=== PATIENT | female | born 1955 | race Caucasian/White ===

== ENCOUNTER 2018-03-31 00:12 | Inpatient (IN) | payer OTHER ==
[2018-03-31] MEDS: SOD CHLORIDE 0.9% 1,000 ML IV ×2 (00:22→05:51)
[2018-03-31 00:23] LABS: ADD MAN DIFF? NO
[2018-03-31 00:44] LABS: ABNORMAL IP MESSAGE 1; BASOPHIL # 0.1 10^3/ul (0.0-0.1); BASOPHILS % 1.1 % (0.0-2.0); EOSINOPHILS # 0.2 10^3/ul (0.0-0.5); EOSINOPHILS % 1.8 % (0.0-7.0); HEMATOCRIT 48.4 % (37.0-47.0); LYMPHOCYTES # 6.2 10^3/ul (0.8-2.9); LYMPHOCYTES % 51.8 % (15.0-51.0); MEAN CORPUSCULAR HEMOGLOBIN 30.5 pg (29.0-33.0); MEAN CORPUSCULAR VOLUME 98.6 fl (82.0-101.0); MONOCYTE # 0.4 10^3/ul (0.3-0.9); MONOCYTES % 3.4 % (0.0-11.0); NEUTROPHIL # 4.9 10^3/ul (1.6-7.5); NEUTROPHILS % 40.8 % (39.0-77.0); PLATELET COUNT 324 10^3/UL (140-415); RED BLOOD COUNT 4.91 10^6/ul (4.20-5.40)
[2018-03-31 00:44] LABS: WHITE BLOOD COUNT 11.9 10^3/ul (4.8-10.8)
[2018-03-31] MEDS: LORAZEPAM 2 MG INJ IV (00:47)
[2018-03-31 00:52] LABS: POSITIVE DIFF @See below
[2018-03-31 01:00] LABS: ALANINE AMINOTRANSFERASE 94 IU/L (13-69); ALBUMIN 4.1 g/dl (3.3-4.9); ALBUMIN/GLOBULIN RATIO 1.28; ALKALINE PHOSPHATASE 72 IU/L (42-121); ANION GAP 23 (8-16); ASPARTATE AMINO TRANSFERASE 81 IU/L (15-46); BILIRUBIN,INDIRECT 0.2 mg/dl (0-1.1); BILIRUBIN,TOTAL 0.2 mg/dl (0.2-1.3); BLOOD UREA NITROGEN 15 mg/dl (7-20); CALCIUM 9.2 mg/dl (8.4-10.2); CARBON DIOXIDE 14 mmol/L (21-31); CHLORIDE 112 mmol/L (97-110); CREATININE 0.97 mg/dl (0.44-1.00); GLUCOSE 224 mg/dl (70-220); POTASSIUM 4.3 mmol/L (3.5-5.1); SODIUM 145 mmol/L (135-144); TOTAL PROTEIN 7.3 g/dl (6.1-8.1)
[2018-03-31 01:03] LABS: INR 0.99; PROTIME 13.2 Sec (11.9-14.9)
[2018-03-31 01:04] LABS: PARTIAL THROMBOPLASTIN TIME 23.2 Sec (25.0-35.0)
[2018-03-31 01:17] LABS: TROPONIN-I 0.621 ng/ml (0.000-0.120)
[2018-03-31] MEDS: SOD CHLORIDE 0.9% 100 ML (01:33)
[2018-03-31] MEDS: IOHEXOL 100 ML (01:33)
[2018-03-31] MEDS: CEFEPIME 1GM/50 ML (PMX) 50 ML IVPB (01:44)
[2018-03-31 02:03] LABS: AADO2 Arterial 556.5 mmHg (7.0-24.0); Allen Test ACCEPTAB; Arterial Base Excess -12.6 mmol/L (-3.0-3); Arterial Blood Gas Oxygen Sat 85.3 mmHG (95.0-98.0); Arterial COHb 0.7 % (0.0-3.0); Arterial Fraction of Oxyhgb 84.5 % (93.0-99.0); Arterial HCO3 20.5 mmol/L (22.0-26.0); Arterial MetHb 0.2 % (0.0-1.5); Arterial Total Hemglobin 14.9 g/dl (12.0-18.0); Arterial pCO2 85.4 mmhg (35-45); Blood Gas IEPAP 15/5; MODE MASK - BIPAP; Site Right Radial
[2018-03-31] MEDS: ASPIRIN 81 MG TAB PO (02:26)
[2018-03-31 02:30] LABS: LACTIC ACID 4.3 mmol/L (0.5-2.0)
[2018-03-31] MEDS: FENTAnyl (DRIP) 1000 mcg/100mL 100 ML IV ×2 (02:41→13:21)
[2018-03-31] MEDS: VANCOMYCIN 1 GM (PMX) 250 ML IVPB (02:43)
[2018-03-31] MEDS ORDERED: ACETAMINOPHEN 325 MG TAB PO (03:00)
[2018-03-31] MEDS ORDERED: ONDANSETRON 4 MG INJ IV (03:00)
[2018-03-31] MEDS: FENTAnyl 50 MCG/ML VIAL IV (03:10)
[2018-03-31] MEDS: MIDAZOLAM 1 MG/ML 2 ML INJ IV (03:15)
[2018-03-31] MEDS: SODIUM CHLORIDE 0.9% 1L BAG IV* (03:28)
[2018-03-31 03:41] LABS: ADD UMIC YES; UR ASCORBIC ACID NEGATIVE (NEGATIVE); UR BACTERIA FEW /HPF (NONE SEEN); UR BILIRUBIN (Dip) NEGATIVE (NEGATIVE); UR BLOOD (Dip) 2+ mg/dL (NEGATIVE); UR CLARITY SLIGHTLY CLOUDY (CLEAR); UR COLOR YELLOW (YELLOW); UR GLUCOSE (Dip) 1+ mg/dL (NEGATIVE); UR KETONES (Dip) NEGATIVE (NEGATIVE); UR LEUKOCYTE ESTERASE (Dip) NEGATIVE Leu/ul (NEGATIVE); UR NITRITE (Dip) NEGATIVE (NEGATIVE); UR RBC 2 /HPF (0-5); UR TOTAL PROTEIN (Dip) 2+ mg/dl (NEGATIVE); UR UROBILINOGEN (Dip) NEGATIVE (NEGATIVE); UR WBC 5 /HPF (0-5)
[2018-03-31 03:55] LABS: AADO2 Arterial 604.9 mmHg (7.0-24.0); Arterial Base Excess -10.7 mmol/L (-3.0-3); Arterial Blood Gas Oxygen Sat 83.1 mmHG (95.0-98.0); Arterial COHb 0.8 % (0.0-3.0); Arterial Fraction of Oxyhgb 82.3 % (93.0-99.0); Arterial HCO3 18.1 mmol/L (22.0-26.0); Arterial MetHb 0.2 % (0.0-1.5); Arterial Total Hemglobin 14.5 g/dl (12.0-18.0); Arterial pCO2 51.9 mmhg (35-45); MODE VENT - AC/VC+; Site Right Brachial
[2018-03-31] MEDS: ASPIRIN 300 MG SUPP PR (04:20)
[2018-03-31] MEDS ORDERED: ALBUTEROL HFA 8 GM INHALER INH (04:30)
[2018-03-31] MEDS ORDERED: VANCOMYCIN IV PER PHARMACY XX (04:30)
[2018-03-31] MEDS ORDERED: IPRATROPIUM (HFA) 12.9 GM INHALER INH (04:30)
[2018-03-31 04:42] LABS: LACTIC ACID 2.5 mmol/L (0.5-2.0)
[2018-03-31 04:42] LABS: HEMOGLOBIN A1C 5.1 % (0-5.9)
[2018-03-31] MEDS: MIDAZOLAM (DRIP) 50 mg/50 mL 50 ML IV ×3 (04:44→20:13)
[2018-03-31 04:46] LABS: B-TYPE NATRIURETIC PEPTIDE 5230 PG/ML (0-125)
[2018-03-31] MEDS: PANTOPRAZOLE 40 MG INJ IV (05:46)
[2018-03-31] MEDS: PIPER-TAZO 3.375 GM IV (PMX) 100 ML IVPB ×3 (05:46→18:03)
[2018-03-31] MEDS ORDERED: NORepinephrine 8MG/250 ML (PMX 250 ML (06:17)
[2018-03-31] MEDS: NORepinephrine 8MG/250 ML (PMX 250 ML IV (06:25)
[2018-03-31] MEDS ORDERED: ETOMIDATE 20 MG INJ (07:00)
[2018-03-31 07:03] LABS: ADD MAN DIFF? NO
[2018-03-31 07:04] LABS: WHITE BLOOD COUNT 14.4 10^3/ul (4.8-10.8)
[2018-03-31 07:04] LABS: BASOPHILS % 0.2 % (0.0-2.0); HEMATOCRIT 38.9 % (37.0-47.0); HEMOGLOBIN 12.1 g/dl (12.0-16.0); LYMPHOCYTES # 0.6 10^3/ul (0.8-2.9); LYMPHOCYTES % 4.4 % (15.0-51.0); MEAN CORPUSCULAR HEMOGLOBIN 30.3 pg (29.0-33.0); MEAN CORPUSCULAR HGB CONC 31.1 g/dl (32.0-37.0); MEAN CORPUSCULAR VOLUME 97.3 fl (82.0-101.0); MEAN PLATELET VOLUME 10.3 fl (7.4-10.4); MONOCYTE # 0.8 10^3/ul (0.3-0.9); MONOCYTES % 5.4 % (0.0-11.0); NEUTROPHIL # 12.8 10^3/ul (1.6-7.5); NEUTROPHILS % 88.7 % (39.0-77.0); PLATELET COUNT 247 10^3/UL (140-415)
[2018-03-31 07:24] LABS: INR 1.09; PROTIME 14.2 Sec (11.9-14.9); PT RATIO 1.1
[2018-03-31 07:25] LABS: PARTIAL THROMBOPLASTIN TIME 23.3 Sec (25.0-35.0)
[2018-03-31] MEDS ORDERED: PHENYLephrine 40 MG in DEXTROSE 5% 496 ML IV (08:00)
[2018-03-31] MEDS: HEPARIN 1000 UNITS/ML 10 ML INJ IV (08:52)
[2018-03-31] MEDS ORDERED: IPRATROPIUM (NEB) 0.5 MG/2.5 ML AMP INH (09:00)
[2018-03-31] MEDS: HEPARIN 25000 UNITS/250 ML 250 ML IV (09:19)
[2018-03-31] MEDS: FUROSEMIDE 40 MG INJ IV (09:31)
[2018-03-31] MEDS: NA BICARBONATE 8.4% 50 ML SYG IV (10:45)
[2018-03-31 11:19] LABS: CREATINE KINASE 1496 IU/L (23-200)
[2018-03-31 11:33] LABS: CK INDEX 9.6
[2018-03-31] MEDS: SODIUM BICARBONATE (IV ADD) 100 MEQ in DEXTROSE 5% 1,000 ML IV (11:35)
[2018-03-31] MEDS ORDERED: HEPARIN 1000 UNITS/ML 10 ML INJ IV (12:30)
[2018-03-31] MEDS: LEVOFLOXACIN 500MG/D5W (PMX) 100 ML IVPB (12:50)
[2018-03-31 15:26] LABS: PARTIAL THROMBOPLASTIN TIME 71.1 Sec (25.0-35.0)
[2018-03-31] MEDS ORDERED: VANCOMYCIN 1 GM 250 ML IVPB (18:00)
[2018-03-31] MEDS: VANCOMYCIN 1 GM 250 ML IVPB (18:06)
[2018-03-31 21:59] LABS: AADO2 Arterial 218.8 mmHg (7.0-24.0); Allen Test ACCEPTAB; Arterial Base Excess 0.1 mmol/L (-3.0-3); Arterial Blood Gas Oxygen Sat 97.6 mmHG (95.0-98.0); Arterial COHb 0.4 % (0.0-3.0); Arterial Fraction of Oxyhgb 97.1 % (93.0-99.0); Arterial HCO3 23.3 mmol/L (22.0-26.0); Arterial MetHb 0.1 % (0.0-1.5); Arterial Total Hemglobin 13.8 g/dl (12.0-18.0); Arterial pCO2 33.6 mmhg (35-45); MODE VENT - AC; Site Right Radial
[2018-03-31] MEDS: FAMOTIDINE 20 MG TAB GTB (23:00)
[2018-03-31 23:33] LABS: PARTIAL THROMBOPLASTIN TIME 60.5 Sec (25.0-35.0)
[2018-04-01] MEDS: SODIUM BICARBONATE (IV ADD) 100 MEQ in DEXTROSE 5% 1,000 ML IV ×2 (00:20→06:00)
[2018-04-01] MEDS ORDERED: VANCOMYCIN 1 GM 250 ML IVPB (01:00)
[2018-04-01] MEDS: FENTAnyl (DRIP) 1000 mcg/100mL 100 ML IV (03:47)
[2018-04-01] MEDS: MIDAZOLAM (DRIP) 50 mg/50 mL 50 ML IV ×4 (04:00→22:35)
[2018-04-01 04:26] LABS: ADD MAN DIFF? NO
[2018-04-01 04:30] LABS: WHITE BLOOD COUNT 17.3 10^3/ul (4.8-10.8)
[2018-04-01 04:30] LABS: BASOPHILS % 0.1 % (0.0-2.0); HEMATOCRIT 36.9 % (37.0-47.0); HEMOGLOBIN 12.4 g/dl (12.0-16.0); LYMPHOCYTES # 1.4 10^3/ul (0.8-2.9); LYMPHOCYTES % 8.1 % (15.0-51.0); MEAN CORPUSCULAR HEMOGLOBIN 30.3 pg (29.0-33.0); MEAN CORPUSCULAR HGB CONC 33.6 g/dl (32.0-37.0); MEAN CORPUSCULAR VOLUME 90.2 fl (82.0-101.0); MEAN PLATELET VOLUME 10.7 fl (7.4-10.4); MONOCYTE # 0.9 10^3/ul (0.3-0.9); MONOCYTES % 5.1 % (0.0-11.0); NEUTROPHIL # 14.9 10^3/ul (1.6-7.5); NEUTROPHILS % 86.1 % (39.0-77.0); PLATELET COUNT 249 10^3/UL (140-415); RED BLOOD COUNT 4.09 10^6/ul (4.20-5.40); RED CELL DISTRIBUTION WIDTH 13.1 % (11.5-14.5)
[2018-04-01 04:49] LABS: ALBUMIN/GLOBULIN RATIO 1.03; ANION GAP 8 (8-16); BILIRUBIN,TOTAL 0.4 mg/dl (0.2-1.3); LDL CHOLESTEROL,CALCULATED 29 mg/dl
[2018-04-01 04:51] LABS: PARTIAL THROMBOPLASTIN TIME 53.1 Sec (25.0-35.0)
[2018-04-01 04:51] LABS: ALANINE AMINOTRANSFERASE 127 IU/L (13-69); ALBUMIN 2.7 g/dl (3.3-4.9); ALKALINE PHOSPHATASE 70 IU/L (42-121); ASPARTATE AMINO TRANSFERASE 187 IU/L (15-46); BILIRUBIN,INDIRECT 0.4 mg/dl (0-1.1); BLOOD UREA NITROGEN 15 mg/dl (7-20); CALCIUM 7.5 mg/dl (8.4-10.2); CARBON DIOXIDE 28 mmol/L (21-31); CHLORIDE 108 mmol/L (97-110); CHOLESTEROL 83 mg/dl (100-200); CREATININE 0.73 mg/dl (0.44-1.00); GLUCOSE 154 mg/dl (70-220); HDL CHOLESTEROL 41 mg/dl (35-98); MAGNESIUM 1.8 mg/dl (1.7-2.5); SODIUM 141 mmol/L (135-144); TOTAL PROTEIN 5.3 g/dl (6.1-8.1); TRIGLYCERIDES 64 mg/dl (0-149)
[2018-04-01 04:59] LABS: B-TYPE NATRIURETIC PEPTIDE 19500 PG/ML (0-125)
[2018-04-01 05:06] LABS: FREE T4 (FREE THYROXINE) 1.57 ng/dl (0.78-2.44)
[2018-04-01 05:42] LABS: CREATINE KINASE 1101 IU/L (23-200)
[2018-04-01 05:55] LABS: CK INDEX 5.8
[2018-04-01 05:57] LABS: INR 1.37; PROTIME 17.1 Sec (11.9-14.9); PT RATIO 1.3
[2018-04-01] MEDS: PIPER-TAZO 3.375 GM IV (PMX) 100 ML IVPB ×5 (06:30→23:59)
[2018-04-01] MEDS: HEPARIN 25000 UNITS/250 ML 250 ML IV ×2 (06:58→11:05)
[2018-04-01] MEDS ORDERED: ASPIRIN 300 MG SUPP PR (09:00)
[2018-04-01 09:07] LABS: AADO2 Arterial 172.6 mmHg (7.0-24.0); Allen Test ACCEPTAB; Arterial Base Excess 0.9 mmol/L (-3.0-3); Arterial Blood Gas Oxygen Sat 98.7 mmHG (95.0-98.0); Arterial COHb 0.2 % (0.0-3.0); Arterial Fraction of Oxyhgb 98.4 % (93.0-99.0); Arterial HCO3 23.2 mmol/L (22.0-26.0); Arterial MetHb 0.1 % (0.0-1.5); Arterial Total Hemglobin 13.9 g/dl (12.0-18.0); Arterial pCO2 30.4 mmhg (35-45); MODE VENT - AC; Site Right Radial
[2018-04-01] MEDS: ASPIRIN 81 MG TAB NGT (09:38)
[2018-04-01] MEDS: FAMOTIDINE 20 MG TAB GTB ×2 (09:38→21:33)
[2018-04-01] MEDS: CLOPIDOGREL 75 MG TAB PO (09:38)
[2018-04-01] MEDS: MAGNESIUM SULFATE 2 GM/50 ML 50 ML IVPB (09:38)
[2018-04-01] MEDS: POTASSIUM CHLORIDE 20 MEQ POWDER FOR ORAL SOLN NGT ×2 (09:39→13:32)
[2018-04-01] MEDS: LEVOFLOXACIN 500MG/D5W (PMX) 100 ML IVPB (10:32)
[2018-04-01] MEDS: VANCOMYCIN 1 GM 250 ML IVPB (13:30)
[2018-04-01 14:39] LABS: PARTIAL THROMBOPLASTIN TIME 75.6 Sec (25.0-35.0)
[2018-04-01 15:28] LABS: ANION GAP 7 (8-16); BLOOD UREA NITROGEN 11 mg/dl (7-20); CALCIUM 7.6 mg/dl (8.4-10.2); CARBON DIOXIDE 25 mmol/L (21-31); CHLORIDE 108 mmol/L (97-110); CREATININE 0.68 mg/dl (0.44-1.00); GLUCOSE 108 mg/dl (70-220); POTASSIUM 3.8 mmol/L (3.5-5.1); SODIUM 136 mmol/L (135-144)
[2018-04-01] MEDS ORDERED: LIDOCAINE 1% (MDV) 20 ML INJ (15:32)
[2018-04-01] MEDS ORDERED: IODIXANOL LOCM 100 ML BTL (15:32)
[2018-04-01] MEDS ORDERED: NITROGLYCERIN (IC) 100 MCG/ML INJ (16:37)
[2018-04-01 16:56] LABS: AADO2 Arterial 273.9 mmHg (7.0-24.0); Allen Test ACCEPTAB; Arterial Base Excess -3.4 mmol/L (-3.0-3); Arterial Blood Gas Oxygen Sat 97.9 mmHG (95.0-98.0); Arterial COHb 0.4 % (0.0-3.0); Arterial Fraction of Oxyhgb 97.4 % (93.0-99.0); Arterial HCO3 21.2 mmol/L (22.0-26.0); Arterial MetHb 0.1 % (0.0-1.5); Arterial Total Hemglobin 12.9 g/dl (12.0-18.0); Arterial pCO2 36.9 mmhg (35-45); MODE VENT - AC; Site Femoral
[2018-04-01] MEDS: PROPOFOL 100 ML IV (17:00)
[2018-04-01] MEDS ORDERED: BIVALIRUDIN 250MG /NS 50 ML 50 ML IVPB (17:07)
[2018-04-01] MEDS: DIGOXIN 500 MCG INJ IV (18:51)
[2018-04-01] MEDS ORDERED: ATROPINE 1 MG/10 ML SYRINGE (19:56)
[2018-04-02] MEDS: VANCOMYCIN 1 GM 250 ML IVPB ×3 (00:37→21:30)
[2018-04-02] MEDS: SODIUM BICARBONATE (IV ADD) 100 MEQ in DEXTROSE 5% 1,000 ML IV ×2 (00:39→14:50)
[2018-04-02] MEDS: FENTAnyl (DRIP) 1000 mcg/100mL 100 ML IV (01:04)
[2018-04-02] MEDS: MIDAZOLAM (DRIP) 50 mg/50 mL 50 ML IV ×3 (04:12→20:38)
[2018-04-02 05:17] LABS: ADD MAN DIFF? NO
[2018-04-02 05:24] LABS: BASOPHILS % 0.2 % (0.0-2.0); EOSINOPHILS % 0.1 % (0.0-7.0); HEMATOCRIT 32.8 % (37.0-47.0); HEMOGLOBIN 10.8 g/dl (12.0-16.0); LYMPHOCYTES # 1.1 10^3/ul (0.8-2.9); LYMPHOCYTES % 9.1 % (15.0-51.0); MEAN CORPUSCULAR HEMOGLOBIN 30.8 pg (29.0-33.0); MEAN CORPUSCULAR HGB CONC 32.9 g/dl (32.0-37.0); MEAN CORPUSCULAR VOLUME 93.4 fl (82.0-101.0); MONOCYTE # 0.5 10^3/ul (0.3-0.9); MONOCYTES % 4.1 % (0.0-11.0); NEUTROPHIL # 10.8 10^3/ul (1.6-7.5); NEUTROPHILS % 85.9 % (39.0-77.0); PLATELET COUNT 176 10^3/UL (140-415); RED BLOOD COUNT 3.51 10^6/ul (4.20-5.40); RED CELL DISTRIBUTION WIDTH 13.3 % (11.5-14.5)
[2018-04-02 05:24] LABS: WHITE BLOOD COUNT 12.6 10^3/ul (4.8-10.8)
[2018-04-02 05:54] LABS: CREATINE KINASE 340 IU/L (23-200)
[2018-04-02 06:07] LABS: CK INDEX 2.2; CK-MB 7.45 ng/ml (0.0-2.4)
[2018-04-02 06:08] LABS: B-TYPE NATRIURETIC PEPTIDE 12100 PG/ML (0-125)
[2018-04-02 06:13] LABS: ALANINE AMINOTRANSFERASE 90 IU/L (13-69); ALBUMIN 2.3 g/dl (3.3-4.9); ALKALINE PHOSPHATASE 71 IU/L (42-121); ANION GAP 8 (8-16); ASPARTATE AMINO TRANSFERASE 73 IU/L (15-46); BILIRUBIN,INDIRECT 0.7 mg/dl (0-1.1); BILIRUBIN,TOTAL 0.7 mg/dl (0.2-1.3); BLOOD UREA NITROGEN 7 mg/dl (7-20); CALCIUM 7.5 mg/dl (8.4-10.2); CARBON DIOXIDE 25 mmol/L (21-31); CHLORIDE 107 mmol/L (97-110); CREATININE 0.56 mg/dl (0.44-1.00); GLUCOSE 113 mg/dl (70-220); MAGNESIUM 1.9 mg/dl (1.7-2.5); SODIUM 136 mmol/L (135-144); TOTAL PROTEIN 4.6 g/dl (6.1-8.1)
[2018-04-02] MEDS: PIPER-TAZO 3.375 GM IV (PMX) 100 ML IVPB ×4 (06:31→23:56)
[2018-04-02] MEDS: HEPARIN 25000 UNITS/250 ML 250 ML IV (06:37)
[2018-04-02] MEDS: FAMOTIDINE 20 MG TAB GTB ×2 (08:05→20:46)
[2018-04-02] MEDS: ASPIRIN 81 MG TAB NGT (08:05)
[2018-04-02] MEDS: LEVOFLOXACIN 500MG/D5W (PMX) 100 ML IVPB (09:47)
[2018-04-02 13:00] LABS: PARTIAL THROMBOPLASTIN TIME 39.9 Sec (25.0-35.0)
[2018-04-02] MEDS: DIGOXIN 500 MCG INJ IV (13:04)
[2018-04-02 13:13] LABS: VANCOMYCIN,TROUGH 5.2 ug/ml (10.0-20.0)
[2018-04-03] MEDS: SODIUM BICARBONATE (IV ADD) 100 MEQ in DEXTROSE 5% 1,000 ML IV (04:36)
[2018-04-03] MEDS: VANCOMYCIN 1 GM 250 ML IVPB (04:47)
[2018-04-03 05:23] LABS: ADD MAN DIFF? NO
[2018-04-03 05:29] LABS: WHITE BLOOD COUNT 7.1 10^3/ul (4.8-10.8)
[2018-04-03 05:29] LABS: BASOPHILS % 0.1 % (0.0-2.0); EOSINOPHILS % 0.4 % (0.0-7.0); HEMATOCRIT 29.4 % (37.0-47.0); HEMOGLOBIN 9.6 g/dl (12.0-16.0); LYMPHOCYTES # 0.9 10^3/ul (0.8-2.9); LYMPHOCYTES % 12.3 % (15.0-51.0); MEAN CORPUSCULAR HEMOGLOBIN 30.6 pg (29.0-33.0); MEAN CORPUSCULAR HGB CONC 32.7 g/dl (32.0-37.0); MEAN CORPUSCULAR VOLUME 93.6 fl (82.0-101.0); MEAN PLATELET VOLUME 10.9 fl (7.4-10.4); MONOCYTE # 0.3 10^3/ul (0.3-0.9); MONOCYTES % 4.7 % (0.0-11.0); NEUTROPHIL # 5.8 10^3/ul (1.6-7.5); NEUTROPHILS % 82.1 % (39.0-77.0); PLATELET COUNT 132 10^3/UL (140-415); RED BLOOD COUNT 3.14 10^6/ul (4.20-5.40)
[2018-04-03 05:48] LABS: PARTIAL THROMBOPLASTIN TIME 38.3 Sec (25.0-35.0)
[2018-04-03 05:54] LABS: ANION GAP 6 (8-16); BLOOD UREA NITROGEN 5 mg/dl (7-20); CALCIUM 7.6 mg/dl (8.4-10.2); CARBON DIOXIDE 28 mmol/L (21-31); CHLORIDE 105 mmol/L (97-110); CREATININE 0.53 mg/dl (0.44-1.00); GLUCOSE 103 mg/dl (70-220); MAGNESIUM 1.8 mg/dl (1.7-2.5); PHOSPHORUS 2.5 mg/dl (2.5-4.9); POTASSIUM 3.3 mmol/L (3.5-5.1); SODIUM 136 mmol/L (135-144)
[2018-04-03] MEDS: PIPER-TAZO 3.375 GM IV (PMX) 100 ML IVPB ×4 (06:09→23:37)
[2018-04-03] MEDS: MIDAZOLAM (DRIP) 50 mg/50 mL 50 ML IV (06:44)
[2018-04-03] MEDS: MAGNESIUM SULFATE 1 GM/D5W 100 ML IVPB ×2 (07:49→12:25)
[2018-04-03] MEDS: POTASSIUM CHLORIDE 100 ML IVPB ×2 (07:58→10:36)
[2018-04-03] MEDS: FAMOTIDINE 20 MG TAB GTB ×2 (08:06→21:05)
[2018-04-03] MEDS: ASPIRIN 81 MG TAB NGT (08:06)
[2018-04-03] MEDS: LEVOFLOXACIN 500MG/D5W (PMX) 100 ML IVPB (10:36)
[2018-04-03] MEDS: HEPARIN 25000 UNITS/250 ML 250 ML IV ×2 (11:30→21:09)
[2018-04-03] MEDS: FENTAnyl (DRIP) 1000 mcg/100mL 100 ML IV (12:00)
[2018-04-03] MEDS: DIGOXIN 500 MCG INJ IV (13:50)
[2018-04-04] MEDS: MIDAZOLAM (DRIP) 50 mg/50 mL 50 ML IV ×2 (00:18→19:52)
[2018-04-04] MEDS: FENTAnyl (DRIP) 1000 mcg/100mL 100 ML IV (04:21)
[2018-04-04 05:05] LABS: ADD MAN DIFF? NO
[2018-04-04 05:20] LABS: WHITE BLOOD COUNT 5.5 10^3/ul (4.8-10.8)
[2018-04-04 05:20] LABS: BASOPHILS % 0.4 % (0.0-2.0); EOSINOPHILS # 0.1 10^3/ul (0.0-0.5); EOSINOPHILS % 1.4 % (0.0-7.0); HEMATOCRIT 29.4 % (37.0-47.0); HEMOGLOBIN 9.6 g/dl (12.0-16.0); LYMPHOCYTES # 0.8 10^3/ul (0.8-2.9); LYMPHOCYTES % 14.5 % (15.0-51.0); MEAN CORPUSCULAR HEMOGLOBIN 30.5 pg (29.0-33.0); MEAN CORPUSCULAR HGB CONC 32.7 g/dl (32.0-37.0); MEAN CORPUSCULAR VOLUME 93.3 fl (82.0-101.0); MEAN PLATELET VOLUME 10.9 fl (7.4-10.4); MONOCYTE # 0.4 10^3/ul (0.3-0.9); MONOCYTES % 6.5 % (0.0-11.0); NEUTROPHIL # 4.2 10^3/ul (1.6-7.5); NEUTROPHILS % 76.8 % (39.0-77.0); PLATELET COUNT 135 10^3/UL (140-415); RED BLOOD COUNT 3.15 10^6/ul (4.20-5.40); RED CELL DISTRIBUTION WIDTH 12.8 % (11.5-14.5)
[2018-04-04 05:26] LABS: CREATINE KINASE 58 IU/L (23-200)
[2018-04-04 05:29] LABS: ALANINE AMINOTRANSFERASE 55 IU/L (13-69); ALBUMIN 2.4 g/dl (3.3-4.9); ALBUMIN/GLOBULIN RATIO 0.88; ALKALINE PHOSPHATASE 71 IU/L (42-121); ANION GAP 9 (8-16); ASPARTATE AMINO TRANSFERASE 35 IU/L (15-46); BILIRUBIN,INDIRECT 0.4 mg/dl (0-1.1); BILIRUBIN,TOTAL 0.4 mg/dl (0.2-1.3); BLOOD UREA NITROGEN 7 mg/dl (7-20); CALCIUM 8.1 mg/dl (8.4-10.2); CARBON DIOXIDE 27 mmol/L (21-31); CHLORIDE 107 mmol/L (97-110); CREATININE 0.66 mg/dl (0.44-1.00); GLUCOSE 110 mg/dl (70-220); MAGNESIUM 2.1 mg/dl (1.7-2.5); POTASSIUM 3.5 mmol/L (3.5-5.1); SODIUM 139 mmol/L (135-144); TOTAL PROTEIN 5.1 g/dl (6.1-8.1)
[2018-04-04 05:36] LABS: DIGOXIN < 0.4 ng/ml (1.0-2.0)
[2018-04-04 05:36] LABS: B-TYPE NATRIURETIC PEPTIDE 6080 PG/ML (0-125)
[2018-04-04 05:39] LABS: CK INDEX 1.6; CK-MB 0.93 ng/ml (0.0-2.4)
[2018-04-04] MEDS: PIPER-TAZO 3.375 GM IV (PMX) 100 ML IVPB ×4 (05:57→23:23)
[2018-04-04 06:50] LABS: PARTIAL THROMBOPLASTIN TIME 35.6 Sec (25.0-35.0)
[2018-04-04 07:38] LABS: AADO2 Arterial 154.5 mmHg (7.0-24.0); Allen Test ACCEPTAB; Arterial Base Excess 1.8 mmol/L (-3.0-3); Arterial Blood Gas Oxygen Sat 96.5 mmHG (95.0-98.0); Arterial COHb 0.3 % (0.0-3.0); Arterial Fraction of Oxyhgb 95.9 % (93.0-99.0); Arterial HCO3 25.5 mmol/L (22.0-26.0); Arterial MetHb 0.3 % (0.0-1.5); Arterial Total Hemglobin 10.2 g/dl (12.0-18.0); Arterial pCO2 36.7 mmhg (35-45); MODE VENT - AC; Site Right Radial
[2018-04-04] MEDS: FAMOTIDINE 20 MG TAB GTB ×2 (09:45→20:34)
[2018-04-04] MEDS: ASPIRIN 81 MG TAB NGT (09:45)
[2018-04-04] MEDS: DIGOXIN 500 MCG INJ IV (13:54)
[2018-04-05] MEDS: PIPER-TAZO 3.375 GM IV (PMX) 100 ML IVPB ×4 (05:00→23:51)
[2018-04-05 06:00] LABS: ADD MAN DIFF? NO
[2018-04-05 06:11] LABS: BASOPHILS % 0.6 % (0.0-2.0); EOSINOPHILS # 0.1 10^3/ul (0.0-0.5); EOSINOPHILS % 2.1 % (0.0-7.0); HEMATOCRIT 28.7 % (37.0-47.0); HEMOGLOBIN 9.4 g/dl (12.0-16.0); LYMPHOCYTES # 0.7 10^3/ul (0.8-2.9); LYMPHOCYTES % 13.7 % (15.0-51.0); MEAN CORPUSCULAR HEMOGLOBIN 30.5 pg (29.0-33.0); MEAN CORPUSCULAR HGB CONC 32.8 g/dl (32.0-37.0); MEAN CORPUSCULAR VOLUME 93.2 fl (82.0-101.0); MEAN PLATELET VOLUME 10.5 fl (7.4-10.4); MONOCYTE # 0.4 10^3/ul (0.3-0.9); MONOCYTES % 8.1 % (0.0-11.0); NEUTROPHIL # 3.9 10^3/ul (1.6-7.5); NEUTROPHILS % 74.7 % (39.0-77.0); PLATELET COUNT 147 10^3/UL (140-415); RED BLOOD COUNT 3.08 10^6/ul (4.20-5.40); RED CELL DISTRIBUTION WIDTH 12.9 % (11.5-14.5)
[2018-04-05 06:11] LABS: WHITE BLOOD COUNT 5.2 10^3/ul (4.8-10.8)
[2018-04-05 06:29] LABS: INR 1.02; PROTIME 13.5 Sec (11.9-14.9); PT RATIO 1.1
[2018-04-05 06:30] LABS: PARTIAL THROMBOPLASTIN TIME 30.7 Sec (25.0-35.0)
[2018-04-05 06:52] LABS: CREATINE KINASE 29 IU/L (23-200)
[2018-04-05 06:54] LABS: ALANINE AMINOTRANSFERASE 52 IU/L (13-69); ALBUMIN 2.5 g/dl (3.3-4.9); ALBUMIN/GLOBULIN RATIO 0.89; ALKALINE PHOSPHATASE 88 IU/L (42-121); ANION GAP 8 (8-16); ASPARTATE AMINO TRANSFERASE 25 IU/L (15-46); BILIRUBIN,INDIRECT 0.2 mg/dl (0-1.1); BILIRUBIN,TOTAL 0.2 mg/dl (0.2-1.3); BLOOD UREA NITROGEN 9 mg/dl (7-20); CALCIUM 8.1 mg/dl (8.4-10.2); CARBON DIOXIDE 29 mmol/L (21-31); CHLORIDE 108 mmol/L (97-110); CREATININE 0.63 mg/dl (0.44-1.00); GLUCOSE 116 mg/dl (70-220); MAGNESIUM 2.1 mg/dl (1.7-2.5); POTASSIUM 3.5 mmol/L (3.5-5.1); SODIUM 141 mmol/L (135-144); TOTAL PROTEIN 5.3 g/dl (6.1-8.1)
[2018-04-05 07:04] LABS: CK INDEX 2.3; CK-MB 0.66 ng/ml (0.0-2.4)
[2018-04-05 07:13] LABS: AADO2 Arterial 88.3 mmHg (7.0-24.0); Allen Test ACCEPTAB; Arterial Base Excess 2.3 mmol/L (-3.0-3); Arterial Blood Gas Oxygen Sat 95.9 mmHG (95.0-98.0); Arterial COHb 0.2 % (0.0-3.0); Arterial Fraction of Oxyhgb 95.6 % (93.0-99.0); Arterial MetHb 0.1 % (0.0-1.5); Arterial Total Hemglobin 10.7 g/dl (12.0-18.0); MODE VENT - AC; Site Right Radial
[2018-04-05] MEDS ORDERED: ATROPINE 1 MG/10 ML SYRINGE (08:50)
[2018-04-05] MEDS: FAMOTIDINE 20 MG TAB GTB ×2 (10:29→20:51)
[2018-04-05] MEDS: ASPIRIN 81 MG TAB NGT (10:29)
[2018-04-05] MEDS: FUROSEMIDE 20 MG INJ IV (10:29)
[2018-04-05] MEDS: POTASSIUM CHLORIDE 20 MEQ POWDER FOR ORAL SOLN GTB (10:29)
[2018-04-05] MEDS: DIGOXIN 500 MCG INJ IV (13:03)
[2018-04-05 14:31] LABS: PROCALCITONIN 10.04 ng/mL (<0.10)
[2018-04-05] MEDS: MIDAZOLAM (DRIP) 50 mg/50 mL 50 ML IV (17:10)
[2018-04-05] MEDS: FENTAnyl (DRIP) 1000 mcg/100mL 100 ML IV (20:21)
[2018-04-06 05:00] LABS: ADD MAN DIFF? NO
[2018-04-06 05:15] LABS: BASOPHILS % 0.5 % (0.0-2.0); EOSINOPHILS # 0.1 10^3/ul (0.0-0.5); HEMATOCRIT 30.4 % (37.0-47.0); HEMOGLOBIN 9.8 g/dl (12.0-16.0); LYMPHOCYTES # 0.8 10^3/ul (0.8-2.9); LYMPHOCYTES % 13.3 % (15.0-51.0); MEAN CORPUSCULAR HEMOGLOBIN 30.2 pg (29.0-33.0); MEAN CORPUSCULAR HGB CONC 32.2 g/dl (32.0-37.0); MEAN CORPUSCULAR VOLUME 93.8 fl (82.0-101.0); MEAN PLATELET VOLUME 10.5 fl (7.4-10.4); MONOCYTE # 0.4 10^3/ul (0.3-0.9); MONOCYTES % 6.5 % (0.0-11.0); NEUTROPHIL # 4.7 10^3/ul (1.6-7.5); NEUTROPHILS % 77.2 % (39.0-77.0); PLATELET COUNT 181 10^3/UL (140-415); RED BLOOD COUNT 3.24 10^6/ul (4.20-5.40); RED CELL DISTRIBUTION WIDTH 12.9 % (11.5-14.5)
[2018-04-06] MEDS: PIPER-TAZO 3.375 GM IV (PMX) 100 ML IVPB ×3 (05:30→17:58)
[2018-04-06 05:36] LABS: CREATINE KINASE 24 IU/L (23-200)
[2018-04-06 05:42] LABS: ALANINE AMINOTRANSFERASE 66 IU/L (13-69); ALBUMIN 2.5 g/dl (3.3-4.9); ALBUMIN/GLOBULIN RATIO 0.96; ALKALINE PHOSPHATASE 81 IU/L (42-121); ANION GAP 10 (8-16); ASPARTATE AMINO TRANSFERASE 50 IU/L (15-46); BILIRUBIN,INDIRECT 0.2 mg/dl (0-1.1); BILIRUBIN,TOTAL 0.2 mg/dl (0.2-1.3); BLOOD UREA NITROGEN 12 mg/dl (7-20); CALCIUM 8.2 mg/dl (8.4-10.2); CARBON DIOXIDE 31 mmol/L (21-31); CHLORIDE 108 mmol/L (97-110); CREATININE 0.71 mg/dl (0.44-1.00); GLUCOSE 121 mg/dl (70-220); MAGNESIUM 2.1 mg/dl (1.7-2.5); POTASSIUM 3.9 mmol/L (3.5-5.1); SODIUM 145 mmol/L (135-144); TOTAL PROTEIN 5.1 g/dl (6.1-8.1)
[2018-04-06 05:47] LABS: B-TYPE NATRIURETIC PEPTIDE 8390 PG/ML (0-125)
[2018-04-06 05:49] LABS: CK INDEX 3.2; CK-MB 0.77 ng/ml (0.0-2.4)
[2018-04-06] MEDS: ASPIRIN 81 MG TAB NGT (08:17)
[2018-04-06] MEDS: FAMOTIDINE 20 MG TAB GTB ×2 (08:17→21:54)
[2018-04-06] MEDS: POTASSIUM CHLORIDE 20 MEQ POWDER FOR ORAL SOLN GTB (08:18)
[2018-04-06] MEDS: ENOXAPARIN 40 MG/0.4 ML SYG SC (08:19)
[2018-04-06] MEDS: FUROSEMIDE 20 MG INJ IV ×2 (08:23→18:00)
[2018-04-06 08:33] LABS: AADO2 Arterial 91.1 mmHg (7.0-24.0); Allen Test ACCEPTAB; Arterial Base Excess 2.5 mmol/L (-3.0-3); Arterial Blood Gas Oxygen Sat 95.4 mmHG (95.0-98.0); Arterial COHb 0.4 % (0.0-3.0); Arterial Fraction of Oxyhgb 94.9 % (93.0-99.0); Arterial HCO3 26.5 mmol/L (22.0-26.0); Arterial MetHb 0.1 % (0.0-1.5); Arterial Total Hemglobin 12.3 g/dl (12.0-18.0); Arterial pCO2 38.9 mmhg (35-45); MODE VENT - AC; Site Right Radial
[2018-04-06] MEDS ORDERED: NAPHAZOLINE 0.012% 15 ML OPH BOTH EYES (09:00)
[2018-04-06] MEDS: NAPHAZOLINE 0.012% 15 ML OPH BOTH EYES ×4 (10:00→21:00)
[2018-04-06] MEDS ORDERED: morphine 10 MG INJ (13:15)
[2018-04-06] MEDS ORDERED: LIDOCAINE 1% (MDV) 10 ML INJ (13:19)
[2018-04-06] MEDS: LIDOCAINE 1% (MDV) 10 ML INJ INJ (13:30)
[2018-04-06] MEDS: morphine 10 MG INJ IV (13:30)
[2018-04-06] MEDS: DIGOXIN 500 MCG INJ IV (14:28)
[2018-04-06] MEDS: MIDAZOLAM (DRIP) 50 mg/50 mL 50 ML IV (20:01)
[2018-04-07] MEDS: PIPER-TAZO 3.375 GM IV (PMX) 100 ML IVPB ×5 (00:42→23:44)
[2018-04-07 05:08] LABS: ADD MAN DIFF? NO
[2018-04-07 05:17] LABS: WHITE BLOOD COUNT 8.8 10^3/ul (4.8-10.8)
[2018-04-07 05:17] LABS: BASOPHILS % 0.3 % (0.0-2.0); EOSINOPHILS # 0.1 10^3/ul (0.0-0.5); EOSINOPHILS % 1.4 % (0.0-7.0); HEMOGLOBIN 10.3 g/dl (12.0-16.0); LYMPHOCYTES % 11.9 % (15.0-51.0); MEAN CORPUSCULAR HEMOGLOBIN 30.9 pg (29.0-33.0); MEAN CORPUSCULAR HGB CONC 33.2 g/dl (32.0-37.0); MEAN CORPUSCULAR VOLUME 93.1 fl (82.0-101.0); MEAN PLATELET VOLUME 10.5 fl (7.4-10.4); MONOCYTE # 0.6 10^3/ul (0.3-0.9); MONOCYTES % 6.5 % (0.0-11.0); NEUTROPHIL # 6.9 10^3/ul (1.6-7.5); NEUTROPHILS % 79.1 % (39.0-77.0); PLATELET COUNT 235 10^3/UL (140-415); RED BLOOD COUNT 3.33 10^6/ul (4.20-5.40); RED CELL DISTRIBUTION WIDTH 12.7 % (11.5-14.5)
[2018-04-07] MEDS: FUROSEMIDE 20 MG INJ IV ×2 (05:22→17:40)
[2018-04-07 05:39] LABS: ANION GAP 10 (8-16); BLOOD UREA NITROGEN 13 mg/dl (7-20); CALCIUM 8.4 mg/dl (8.4-10.2); CARBON DIOXIDE 33 mmol/L (21-31); CHLORIDE 103 mmol/L (97-110); CREATININE 0.75 mg/dl (0.44-1.00); GLUCOSE 89 mg/dl (70-220); SODIUM 142 mmol/L (135-144)
[2018-04-07] MEDS: FAMOTIDINE 20 MG TAB GTB ×2 (08:53→20:25)
[2018-04-07] MEDS: ASPIRIN 81 MG TAB NGT (08:53)
[2018-04-07] MEDS: TETRAHYDROZOLINE 0.05% 15 ML OPH BOTH EYES ×3 (08:54→20:25)
[2018-04-07] MEDS: ENOXAPARIN 40 MG/0.4 ML SYG SC (08:56)
[2018-04-07] MEDS: DIGOXIN 500 MCG INJ IV (13:18)
[2018-04-07 16:47] LABS: AADO2 Arterial 80.5 mmHg (7.0-24.0); Allen Test ACCEPTAB; Arterial Blood Gas Oxygen Sat 96.6 mmHG (95.0-98.0); Arterial COHb 0.2 % (0.0-3.0); Arterial Fraction of Oxyhgb 96.3 % (93.0-99.0); Arterial HCO3 28.7 mmol/L (22.0-26.0); Arterial MetHb 0.1 % (0.0-1.5); Arterial Total Hemglobin 10.9 g/dl (12.0-18.0); Arterial pCO2 39.2 mmhg (35-45); Blood Gas PS 10; MODE VENT - CPAP; Site Right Radial
[2018-04-07] MEDS: ATORVASTATIN 40 MG TAB PO (20:25)
[2018-04-08 05:07] LABS: ADD MAN DIFF? NO
[2018-04-08 05:21] LABS: WHITE BLOOD COUNT 7.7 10^3/ul (4.8-10.8)
[2018-04-08 05:21] LABS: BASOPHILS % 0.4 % (0.0-2.0); EOSINOPHILS # 0.1 10^3/ul (0.0-0.5); EOSINOPHILS % 1.8 % (0.0-7.0); HEMATOCRIT 31.3 % (37.0-47.0); HEMOGLOBIN 10.2 g/dl (12.0-16.0); LYMPHOCYTES % 13.4 % (15.0-51.0); MEAN CORPUSCULAR HEMOGLOBIN 30.4 pg (29.0-33.0); MEAN CORPUSCULAR HGB CONC 32.6 g/dl (32.0-37.0); MEAN CORPUSCULAR VOLUME 93.2 fl (82.0-101.0); MEAN PLATELET VOLUME 10.6 fl (7.4-10.4); MONOCYTE # 0.5 10^3/ul (0.3-0.9); MONOCYTES % 6.4 % (0.0-11.0); NEUTROPHILS % 77.2 % (39.0-77.0); PLATELET COUNT 281 10^3/UL (140-415); RED BLOOD COUNT 3.36 10^6/ul (4.20-5.40); RED CELL DISTRIBUTION WIDTH 12.4 % (11.5-14.5)
[2018-04-08 05:28] LABS: ANION GAP 13 (8-16); BLOOD UREA NITROGEN 13 mg/dl (7-20); CALCIUM 8.3 mg/dl (8.4-10.2); CARBON DIOXIDE 32 mmol/L (21-31); CHLORIDE 104 mmol/L (97-110); CREATININE 0.78 mg/dl (0.44-1.00); GLUCOSE 77 mg/dl (70-220); MAGNESIUM 2.3 mg/dl (1.7-2.5); SODIUM 145 mmol/L (135-144)
[2018-04-08] MEDS: PIPER-TAZO 3.375 GM IV (PMX) 100 ML IVPB ×3 (06:12→17:09)
[2018-04-08] MEDS: FUROSEMIDE 20 MG INJ IV ×2 (06:13→17:09)
[2018-04-08] MEDS: ASPIRIN 81 MG TAB NGT (09:27)
[2018-04-08] MEDS: FAMOTIDINE 20 MG TAB GTB ×2 (09:27→21:12)
[2018-04-08] MEDS: ENOXAPARIN 40 MG/0.4 ML SYG SC (09:28)
[2018-04-08] MEDS: TETRAHYDROZOLINE 0.05% 15 ML OPH BOTH EYES ×3 (09:29→21:11)
[2018-04-08] MEDS: ACETAMINOPHEN 650MG/20.3ML CUP NGT ×2 (09:38→19:13)
[2018-04-08] MEDS: DIGOXIN 500 MCG INJ IV (13:43)
[2018-04-08] MEDS: ATORVASTATIN 40 MG TAB PO ×2 (21:00→21:12)
[2018-04-09] MEDS: PIPER-TAZO 3.375 GM IV (PMX) 100 ML IVPB ×4 (00:30→18:17)
[2018-04-09] MEDS: FUROSEMIDE 20 MG INJ IV ×2 (06:08→18:17)
[2018-04-09] MEDS: ASPIRIN 81 MG TAB NGT (08:37)
[2018-04-09] MEDS: FAMOTIDINE 20 MG TAB GTB (08:38)
[2018-04-09] MEDS: TETRAHYDROZOLINE 0.05% 15 ML OPH BOTH EYES ×2 (08:38→13:00)
[2018-04-09] MEDS: ENOXAPARIN 40 MG/0.4 ML SYG SC (08:41)
[2018-04-09] MEDS: DIGOXIN 500 MCG INJ IV (13:00)
[2018-04-09] MEDS: HYDROmorphONE 1 MG/ML SYG IV (15:03)
== END 2018-04-09 20:59 | disposition short-term general hospital (02) | DRG 853 ==
LOC: ICU 04-01 17:29 → E/R 00:12 → ICU 02:44
PROC: 02703ZZ Dilation of Coronary Artery, One Artery, Percutaneous Approach (ICD-10-PCS; 2018-04-01 16:00)
PROC: 5A02210 Assistance with Cardiac Output using Balloon Pump, Continuous (ICD-10-PCS; 2018-04-01 16:00)
PROC: 4A023N7 Measurement of Cardiac Sampling and Pressure, Left Heart, Percutaneous Approach (ICD-10-PCS; 2018-04-01 16:00)
PROC: B211YZZ Fluoroscopy of Multiple Coronary Arteries using Other Contrast (ICD-10-PCS; 2018-04-01 16:00)
PROC: 05H533Z Insertion of Infusion Device into Right Subclavian Vein, Percutaneous Approach (ICD-10-PCS; principal; 2018-04-01 16:03)
PROC: 0W9900Z Drainage of Right Pleural Cavity with Drainage Device, Open Approach (ICD-10-PCS; 2018-04-01 16:03)
PROC: 5A1955Z Respiratory Ventilation, Greater than 96 Consecutive Hours (ICD-10-PCS; 2018-04-01 16:03)
PROC: 02W Heart and Great Vessels, Revision (ICD-10-PCS; 2018-04-01 16:03)
PROC: 0BH18EZ Insertion of Endotracheal Airway into Trachea, Via Natural or Artificial Opening Endoscopic (ICD-10-PCS; 2018-04-01 16:03)
DX: A41.9 Sepsis, unspecified organism (principal); R65.21 Severe sepsis with septic shock; J18.9 Pneumonia, unspecified organism; R57.0 Cardiogenic shock; J96.01 Acute respiratory failure with hypoxia; J96.02 Acute respiratory failure with hypercapnia; I21.4 Non-ST elevation (NSTEMI) myocardial infarction; E87.4 Mixed disorder of acid-base balance; I42.9 Cardiomyopathy, unspecified; J90 Pleural effusion, not elsewhere classified; T82.52 Displacement of other cardiac and vascular devices and implants; I25.82 Chronic total occlusion of coronary artery; D64.9 Anemia, unspecified; I10 Essential (primary) hypertension; E78.5 Hyperlipidemia, unspecified; I34.0 Nonrheumatic mitral (valve) insufficiency; E66.9 Obesity, unspecified; F17.200 Nicotine dependence, unspecified, uncomplicated; Y83.8 Other surgical procedures as the cause of abnormal reaction of the patient, or of later complication, without mention of misadventure at the time of the procedure; Y92.238 Other place in hospital as the place of occurrence of the external cause; Z85.3 Personal history of malignant neoplasm of breast; Z68.32 Body mass index [BMI] 32.0-32.9, adult
CPT/HCPCS: 31500; 36415; 36600; 71045; 71275; 76700; 80048; 80053; 80061; 80162; 80202; 81001; 82550; 82553; 82803; 83036; 83605; 83735; 83880; 84100; 84145; 84439; 84443; 84484; 85025; 85610; 85730; 87040; 87070; 87081; 87086; 87102; 87116; 88104; 88305; 89220; 92610; 93005; 93306; 93458; 94002; 94003; 94660; 94770; 96361; 96365; 96375; 99291-25